=== PATIENT | male | born 1960 | race Caucasian/White ===

== ENCOUNTER 2021-03-19 11:40 | Emergency (ER) | payer BC ==
[2021-03-19 13:37] LABS: HEMOGLOBIN 15.9 gm/dl (14.0-17.5); RED BLOOD COUNT 4.89 M/UL (4.20-5.50); WHITE BLOOD COUNT 4.5 K/UL (4.5-11.0)
[2021-03-19 13:56] LABS: BUN/CREATININE RATIO 17 (0-10)
[2021-03-19] MEDS ORDERED: MOBIC15 MG PO (14:50)
[2021-03-19] MEDS ORDERED: CYCLOBENZAPRINE5 MG PO (14:50)
== END 2021-03-19 15:08 | disposition home or self-care (01) ==
LOC: ER1 11:40
PROVIDERS: Physician Assistant
DX: M47.812 Spondylosis without myelopathy or radiculopathy, cervical region (principal); M50.021 Cervical disc disorder at C4-C5 level with myelopathy; M50.121 Cervical disc disorder at C4-C5 level with radiculopathy; M48.02 Spinal stenosis, cervical region; I10 Essential (primary) hypertension; E78.5 Hyperlipidemia, unspecified; E11.9 Type 2 diabetes mellitus without complications; Z86.73 Personal history of transient ischemic attack (TIA), and cerebral infarction without residual deficits; Z88.0 Allergy status to penicillin; Z79.01 Long term (current) use of anticoagulants; Z79.4 Long term (current) use of insulin; Z79.899 Other long term (current) drug therapy
CPT/HCPCS: 70450; 72125; 80053; 82550; 82553; 82962; 83874; 84484; 85025; 93005; 99284

== ENCOUNTER 2021-11-28 17:58 | Emergency (ER) | payer SELFPAY ==
[~2021-11-28 17:58] MED LIST: CYCLOBENZAPRINE5 MG PO; MOBIC15 MG PO
[2021-11-28 19:58] LABS: HEMOGLOBIN 15.1 gm/dl (14.0-17.5); RED BLOOD COUNT 4.86 M/UL (4.20-5.50); WHITE BLOOD COUNT 3.8 K/UL (4.5-11.0)
[2021-11-28 20:21] LABS: BUN/CREATININE RATIO 38 (0-10)
[2021-11-28] MEDS ORDERED: PHENERGAN 25 MG25 M1 PO (21:48)
== END 2021-11-28 21:30 | disposition home or self-care (01) ==
LOC: ER1 17:58
PROVIDERS: Student in an Organized Health Care Education/Training Program
DX: E88.09 Other disorders of plasma-protein metabolism, not elsewhere classified (principal); I10 Essential (primary) hypertension; E10.9 Type 1 diabetes mellitus without complications; E78.5 Hyperlipidemia, unspecified; Z79.4 Long term (current) use of insulin
CPT/HCPCS: 71045; 80053; 82550; 82553; 83605; 83690; 84484; 85025; 85379; 93005; 99285; J7030